=== PATIENT | male | born 1975 | race Caucasian/White ===

== ENCOUNTER 2017-09-21 10:45 | Emergency (ER) | payer OTHER ==
[~2017-09-21] VITALS: Ht 172.7 cm; Wt 96.7 kg
[2017-09-21 10:54] VITALS: TEMP 36.7; Ht 172.7 cm; Wt 96.7 kg
[2017-09-21] MEDS ORDERED: SODIUM CHLORIDE 0.9% 1000ML 1,000 ML IV STA (11:24)
[2017-09-21] MEDS ORDERED: ONDANSETRON INJ 2 MG/ML 2 ML VIAL IV STA (11:24)
[2017-09-21] MEDS ORDERED: KETOROLAC TROMETHAMINE 30 MG/ML VIAL IV STA (11:24)
[2017-09-21 12:13] LABS: BASO % 0.9 %; BASO ABS # 0.05 K/uL (0-0.2); COMPLETE YES; EOS % 2.9 %; HEMATOCRIT 43.1 % (42-52); IG% 0.2 %; LYMPH % 26.7 %; LYMPH ABS # 1.47 K/uL (1.2-3.4); MEAN CELL VOLUME 88.7 fL (80-100); MEAN CORPUSCULAR HEMOGLOBIN 31.3 pg (25-34); MEAN CORPUSCULAR HGB CONC 35.3 g/dl (32-36); MEAN PLATELET VOLUME 10.3 fL (7.4-10.4); MONO % 8.7 %; NEUT % 60.6 %; PLATELET COUNT 226 K/uL (130-400); RED BLOOD COUNT 4.86 M/uL (4.7-6.1); WHITE BLOOD COUNT 5.51 K/uL (4.8-10.8)
[2017-09-21 12:17] LABS: URINE APPEARANCE CLEAR (CLEAR); URINE BILIRUBIN NEG (NEG); URINE COLOR YELLOW; URINE NITRITE NEG (NEG); URINE SPECIFIC GRAVITY 1.023 (1.000-1.030); UROBILINOGEN NEG (NEG)
--- NOTE | 2017-09-21 12:18 | DIAGNOSTIC IMAGING REPORT ---
ABD/PELVIS WITHOUT FOR STONE HISTORY: 42 years-old Male EVAL LEFT FLANK PAIN acute left-sided flank pain with history of kidney stones COMPARISON: None available TECHNIQUE: Multiple axial CT images of the abdomen and pelvis were obtained without contrast. A dose lowering technique was used consistent with the principals of CARLOS. FINDINGS: Lung bases are generally clear. No pneumatosis or pneumoperitoneum. Imaged inferior cardiac chambers are unremarkable. The liver, spleen, gallbladder, pancreas and adrenal glands are within normal limits. Kidneys, ureters, urinary bladder and prostate are unremarkable. Punctate calcification of the right central prostate noted. Aorta is normal in both course and caliber. No bulky adenopathy. There is no bowel structure or focal bowel wall thickening. The appendix appears normal. Soft tissues are unremarkable. Bones appear intact. Bones of the proximal femora. Mild facet arthrosis of the lower lumbar spine. IMPRESSION: 1. No acute intra-abdominal or intrapelvic abnormality identified, specifically no renal calculi or obstructive uropathy. 2. Normal appendix. 3. No bowel obstruction or focal bowel wall thickening. The above report was generated using voice recognition software. It may contain grammatical, syntax or spelling errors. Electronically signed by: Arturo Sena M.D. 09/21/2017 12:17 PM Dictated Date/Time: 09/21/2017 12:06 PM
[2017-09-21 12:23] LABS: MANUAL MICROSCOPIC REQUIRED? NO; REVIEW REQ? NO
[2017-09-21 12:32] LABS: BUN/CREATININE RATIO 13.4 (10-20); CALCIUM 8.9 mg/dl (8.5-10.1); CREATININE 0.94 mg/dl (0.60-1.40); POTASSIUM 4.2 mmol/L (3.5-5.1)
--- NOTE | 2017-09-21 13:48 | EMERGENCY ROOM VISIT NOTE ---
ED Visit Note First contact with patient: 11:19 CHIEF COMPLAINT: Left flank pain 6 hours HISTORY OF PRESENT ILLNESS: Patient is an otherwise healthy 42-year-old white male who presents emergency department for evaluation of left flank pain. His symptoms started this morning shortly after waking up around 5:00. He states that his pain started like a "pulled muscle" in his left low back, but steadily escalated, and began to radiate into his left lower quadrant and groin. He states that he had one prior episode where he passed a kidney stone about 10 years ago, and this feels very similar. He states that the pain was a constant , steady ache/10, but would spike up to a 9/10. It was very severe as he was driving himself here to the emergency department, but presently has subsided slightly. He was slightly nauseous but did not vomit. He did not try taking any medications for his symptoms. He notes that his urine is dark and foul- smelling, but denies dysuria, frequency or urgency, and no gross hematuria. Bowel movements have been normal. He denies fever or chills. REVIEW OF SYSTEMS: Review of systems as per HPI. All other systems reviewed were negative. 10 systems reviewed. PMH: Electronic medical records are reviewed and summarized as above/below. See Problem List. SOCIAL HISTORY: Patient lives at home by himself. Smokes one pack of cigarettes every 2 weeks, drinks one case of beer every 2 weeks. PHYSICAL EXAM: Vital Signs: Reviewed Nurse's notes. CONSTITUTIONAL: Patient is a well-appearing 42-year-old white male who is awake and alert and in no acute distress. EYES: Pupils equal, round, reactive to light and accommodation. EOMs intact without nystagmus. Sclera are anicteric. ENT: Tympanic membranes intact, with normal landmarks. External canals are clear. Oral and nasopharynx are clear. Mucous membranes are moist, no lesions , tongue and gums appear normal. NECK: Supple without lymphadenopathy. No thyromegaly. No meningeal signs. Full active range of motion without discomfort. CARDIOVASCULAR: Regular rate and rhythm, with normal S1 and S2, no murmur or gallop or rub is heard. No carotid bruits auscultated. No JVD. Peripheral pulses easily palpable. RESPIRATORY: Breath sounds equal and clear to auscultation without wheezes, rales, or rhonchi heard. Full and equal chest expansion without accessory muscle use or retractions. ABDOMEN: Bowel sounds are present. Abdomen is soft, nondistended, nontender to palpation of the left upper and lower quadrants, without guarding or rebound. No CVA tenderness. INTEGUMENTARY: No lesions or rash, normal skin turgor. LYMPH: No lymphadenopathy. EMERGENCY DEPARTMENT COURSE: The patient was seen and evaluated as above. He has no old records available for review. IV lock was initiated. Urinalysis, CBC and BMP were drawn. He was hydrated with normal saline solution, medicated with Toradol 30 mg and Zofran 4 mg IV. Given his history of kidney stones, CT scan of the abdomen and pelvis without contrast was ordered. Laboratory studies noted a normal white count. H&H is within normal limits. Electrolytes and renal functions are normal. Urinalysis was completely clear. CT scan did not demonstrate any nephrolithiasis. There were no ureteral or bladder calculi noted. No hydronephrosis. There was otherwise no acute intra- abdominal findings noted. All laboratory and diagnostic imaging studies were reviewed with the patient. Differential diagnoses entertained included UTI, pyelonephritis, renal colic, diverticulitis, constipation, colonic spasm, shingles, musculoskeletal injury, hernia, among others. Patient rated his discomfort a 4/10 at discharge. Medication reconciliation: I attest that I have personally reviewed the patient' s current medication list. Blood pressure screening : Patient was found to have normal blood pressure on screening and does not require follow-up. ABD/PELVIS WITHOUT FOR STONE HISTORY: 42 years-old Male EVAL LEFT FLANK PAIN acute left-sided flank pain with history of kidney stones COMPARISON: None available TECHNIQUE: Multiple axial CT images of the abdomen and pelvis were obtained without contrast. A dose lowering technique was used consistent with the principals of ALARA. FINDINGS: Lung bases are generally clear. No pneumatosis or pneumoperitoneum. Imaged inferior cardiac chambers are unremarkable. The liver, spleen, gallbladder, pancreas and adrenal glands are within normal limits. Kidneys, ureters, urinary bladder and prostate are unremarkable. Punctate calcification of the right central prostate noted. Aorta is normal in both course and caliber. No bulky adenopathy. There is no bowel structure or focal bowel wall thickening. The appendix appears normal. Soft tissues are unremarkable. Bones appear intact. Bones of the proximal femora. Mild facet arthrosis of the lower lumbar spine. IMPRESSION: 1. No acute intra-abdominal or intrapelvic abnormality identified, specifically no renal calculi or obstructive uropathy. 2. Normal appendix. 3. No bowel obstruction or focal bowel wall thickening. The above report was generated using voice recognition software. It may contain grammatical, syntax or spelling errors. Problem List Medical Problems: (1) Kidney stone Status: Resolved Current/Historical Medications No Active Prescriptions or Reported Meds Allergies Coded Allergies: No Known Allergies (Unverified , 09/21/17) Vital Signs Date Time Temp Pulse Resp B/P (MAP) Pulse Ox O2 Delivery O2 Flow Rate FiO2 09/21/17 13:52 56 16 128/84 99 09/21/17 12:17 66 16 125/83 99 Room Air 09/21/17 10:54 36.7 74 18 143/90 97 Room Air Laboratory Results 09/21/17 11:40 Red Blood Count 4.86, Mean Corpuscular Volume 88.7, Mean Corpuscular Hemoglobin 31.3, Mean Corpuscular Hemoglobin Concent 35.3, Mean Platelet Volume 10.3, Neutrophils (%) (Auto) 60.6, Lymphocytes (%) (Auto) 26.7, Monocytes (%) (Auto) 8.7, Eosinophils (%) (Auto) 2.9, Basophils (%) (Auto) 0.9, Neutrophils # (Auto) 3.34, Lymphocytes # (Auto) 1.47, Monocytes # (Auto) 0.48, Eosinophils # (Auto) 0.16, Basophils # (Auto) 0.05 09/21/17 11:40 Test 09/21/17 11:30 09/21/17 11:40 Urine Color YELLOW Urine Appearance CLEAR (CLEAR) Urine pH 6.0 (4.5-7.5) Urine Specific [place] 1.023 (1.000-1.030) Urine Protein NEG (NEG) Urine Glucose (UA) NEG (NEG) Urine Ketones NEG (NEG) Urine Occult Blood NEG (NEG) Urine Nitrite NEG (NEG) Urine Bilirubin NEG (NEG) Urine Urobilinogen NEG (NEG) Urine Leukocyte Esterase NEG (NEG) White Blood Count 5.51 K/uL (4.8-10.8) Red Blood Count 4.86 M/uL (4.7-6.1) Hemoglobin 15.2 g/dL (14.0-18.0) Hematocrit 43.1 % (42-52) Mean Corpuscular Volume 88.7 fL (80-100) Mean Corpuscular Hemoglobin 31.3 pg (25-34) Mean Corpuscular Hemoglobin Concent 35.3 g/dl (32-36) Platelet Count 226 K/uL (130-400) Mean Platelet Volume 10.3 fL (7.4-10.4) Neutrophils (%) (Auto) 60.6 % Lymphocytes (%) (Auto) 26.7 % Monocytes (%) (Auto) 8.7 % Eosinophils (%) (Auto) 2.9 % Basophils (%) (Auto) 0.9 % Neutrophils # (Auto) 3.34 K/uL (1.4-6.5) Lymphocytes # (Auto) 1.47 K/uL (1.2-3.4) Monocytes # (Auto) 0.48 K/uL (0.11-0.59) Eosinophils # (Auto) 0.16 K/uL (0-0.5) Basophils # (Auto) 0.05 K/uL (0-0.2) RDW Standard Deviation 40.2 fL (36.4-46.3) RDW Coefficient of Variation 12.6 % (11.5-14.5) Immature Granulocyte % (Auto) 0.2 % Immature Granulocyte # (Auto) 0.01 K/uL (0.00-0.02) Anion Gap 4.0 mmol/L (3-11) Est Creatinine Clear Calc Drug Dose 116.6 ml/min Estimated GFR () 116.3 Estimated GFR (Non- 100.3 BUN/Creatinine Ratio 13.4 (10-20) Calcium Level 8.9 mg/dl (8.5-10.1) Medications Administered Medications (Trade) Dose Ordered Sig/Debra Route Start Time Stop Time Status Last Admin Dose Admin Sodium Chloride 1,000 ml @ 999 mls/hr Q1H1M STAT IV 09/21/17 11:24 09/21/17 12:24 DC 09/21/17 11:42 999 MLS/HR Ketorolac Tromethamine (Toradol Inj) 30 mg NOW STAT IV 09/21/17 11:24 09/21/17 11:31 DC 09/21/17 11:41 30 MG Ondansetron HCl (Zofran Inj) 4 mg NOW STAT IV 09/21/17 11:24 09/21/17 11:31 DC 09/21/17 11:41 4 MG Departure Information Impression Primary Impression: Left flank pain Prescriptions No Active Prescriptions or Reported Meds Referrals No Doctor, Assigned (PCP) Patient Instructions My [facility] Additional Instructions Ibuprofen(Motrin, Advil) may be used for fever or pain. Use 600mg every six hours as needed. Take with food. Avoid using more than 2400mg in a 24 hour period. Do not use 2400mg per day for more than three consecutive days without physician direction. Prolonged inappropriate use can lead to stomach upset or ulcers. This is available over the counter and typically comes in 200mg tablets. (AND/OR) Acetaminophen(Tylenol) may be used for fever or pain. Use 1000mg every eight hours as needed. Avoid using more than 3000mg in a 24 hour period. This is available over the counter. Rest and drink plenty of fluids as tolerated. Slow sips of water or sports drinks are recommended instead of large amounts all at once. Continue current medications. Once your stomach is settled start with a clear liquid diet (jello, soup broth, etc.) and then advance as tolerated. You should avoid full, heavy meals for about 24 hrs from the time your symptoms resolved. Return to the ER immediately for worsening or persistent abdominal pain, vomiting, fevers, chest pains, difficulty breathing, black or bloody stools, worsening of your condition, or as needed. Follow up with your primary physician in 1-2 days for a recheck of your current condition.
[2017-09-21 13:52] VITALS: BP 128/84; PULSE 56; O2SAT 99
== END 2017-09-21 13:58 | disposition home or self-care (01) ==
LOC: C.EDB 10:48 → C.EDC 13:58
DX: R10.9 Unspecified abdominal pain (principal); F17.200 Nicotine dependence, unspecified, uncomplicated; Z87.442 Personal history of urinary calculi